=== PATIENT | female | born 1985 | race Caucasian/White ===

== ENCOUNTER 2018-11-07 16:46 | Emergency (ER) | payer MEDICAID ==
[~2018-11-07] VITALS: Ht 114.3 cm; Wt 66.8 kg
[2018-11-07 16:50] VITALS: Ht 114.3 cm; Wt 66.8 kg
[2018-11-07] MEDS ORDERED: CYCL10TA7 PO (18:55)
[2018-11-07] MEDS ORDERED: IBUP-1542 PO (18:55)
--- NOTE | 2018-11-07 19:12 | ERD ---
ER Documentation Chief Complaint Chief Complaint right sided chest pain that radiates to right shoulder and head x 1 day HPI 33-year-old female presents with right-sided chest pain that radiates to the right shoulder, head, x1 day. Patient states his symptoms began yesterday and have persisted for the past 24 hours, no change in intensity. Denies shortness of breath. She has not taken any medications to alleviate her symptoms at this time. She notes an increase in recent stress however she does not believe this is related to her symptoms. Denies history of heart disease, heart attack, diabetes. Patient is a non-smoker, denies hormone use, denies recent long distance travel, denies history of blood clots, denies lower extremity swelling, no hemoptysis. ROS All systems reviewed and are negative except as per history of present illness. Medications Home Meds Active Scripts Ibuprofen* (Motrin*) 600 Mg Tab, 600 MG PO Q6, #30 TAB Prov:NAEL SHAH PA-C 11/07/18 Cyclobenzaprine Hcl* (Cyclobenzaprine Hcl*) 10 Mg Tablet, 10 MG PO TID, #15 TAB Prov:NAEL SHAH PA-C 11/07/18 Allergies Allergies: Coded Allergies: No Known Allergy (Unverified , 11/07/18) PMhx/Soc Hx Alcohol Use: No Hx Substance Use: No Hx Tobacco Use: No Smoking Status: Never smoker Physical Exam Vitals Vital Signs Date Temp Pulse Resp B/P (MAP) Pulse Ox O2 O2 Flow FiO2 Time Delivery Rate 11/07/18 99.8 108 16 164/105 100 16:50 (124) Physical Exam Constitutional: Well developed. Well nourished. No acute distress Head/Eyes: Atraumatic. Normocephalic. PERRL. EOMI ENT: Moist mucous membranes. Voice normal. Neck: Supple. No lymphadenopathy Cardiovascular: Regular rate and rhythm. No murmurs, rubs, or gallops. Distal pulses intact Respiratory: No respiratory distress. Normal breath sounds. No wheezes, rales, or rhonchi. Abdominal: Soft. Non-tender. No guarding, rebound, or rigidity. Non-distended. Back: Full range of motion. No midline tenderness. Muscle spasms to the bilateral trapezius muscles. Extremities: No edema, Full ROM. Pulses 2+. No calf tenderness. Skin: Dry. No rashes. Warm Neurological: Alert and oriented X 3. Normal speech Psychiatric: Normal mood. Normal affect Result Diagram: 11/07/18 18011/[id number]/181802 Results 24 hrs Laboratory Tests Test 11/07/18 18:03 11/07/18 18:26 White Blood Count 10.1 10^3/ul Red Blood Count 4.92 10^6/ul Hemoglobin 13.0 g/dl Hematocrit 41.1 % Mean Corpuscular Volume 83.5 fl Mean Corpuscular Hemoglobin 26.4 pg Mean Corpuscular Hemoglobin Concent 31.6 g/dl Red Cell Distribution Width 13.6 % Platelet Count 306 10^3/UL Mean Platelet Volume 10.7 fl Immature Granulocytes % 0.200 % Neutrophils % 71.5 % Lymphocytes % 20.4 % Monocytes % 4.9 % Eosinophils % 2.8 % Basophils % 0.2 % Nucleated Red Blood Cells % 0.0 /100WBC Immature Granulocytes # 0.020 10^3/ul Neutrophils # 7.2 10^3/ul Lymphocytes # 2.1 10^3/ul Monocytes # 0.5 10^3/ul Eosinophils # 0.3 10^3/ul Basophils # 0.0 10^3/ul Nucleated Red Blood Cells # 0.0 10^3/ul Sodium Level 142 mmol/L Potassium Level 3.9 mmol/L Chloride Level 107 mmol/L Carbon Dioxide Level 26 mmol/L Anion Gap 9 Blood Urea Nitrogen 6 mg/dl Creatinine 0.62 mg/dl Est Glomerular Filtrat Rate mL/min > 60 mL/min Glucose Level 106 mg/dl Calcium Level 9.3 mg/dl Troponin I < 0.012 ng/ml POC Beta HCG, Qualitative NEGATIVE Procedures/MDM EKG: Rate/Rhythm: Sinus tach QRS, ST, T-waves: No changes consistent w/ acute ischemia Impression: No evidence of ischemia or arrhythmia MDM: This is an otherwise healthy 33-year-old female who presents to the ED with complaint of right-sided chest pain. Patient has no cardiac risk factors, non- smoker. Given elevated blood pressure with no history of hypertension as well as elevated pulse cardiac work-up performed. All labs and imaging negative. Symptoms likely consistent with anxiety plus or minus muscle spasms. Patient counseled regarding need for follow-up with primary care provider in the next 2 to 3 days. Given referral to community health clinics in the area to ensure follow-up. Prescription for Flexeril and Motrin given for muscle spasms. At this time I do not believe patient is at risk for SC, PE, dissection or other acute cardiopulmonary etiology based on negative risk factors. Patient counseled regarding ED return precautions. At this time I believe patient is stable for discharge with outpatient management. All questions addressed and answered. Patient expressed verbal understanding and agreement to treatment plan. Departure Diagnosis: Primary Impression: Chest pain of unknown etiology Additional Impressions: Muscle spasms of neck Stress Condition: Stable Patient Instructions: Muscle Spasm, Stress: Causes and Effects, Chest Pain, Uncertain Cause Referrals: [facility] Usted se christian hecho un examen mdico de control que le indica que no est en steve condicin que requiera tratamiento urgente en el Departamento de Emergencia. Un estudio ms profundo y el tratamiento de zimmerman condicin pueden esperar sin ningn riesgo hasta que usted sea atendida/o en el consultorio de zimmerman mdico o steve clnica. Es responsabilidad suya arreglar steve anne para el seguimiento del ambreen. MANEJO DE CONDICIONES NO URGENTES EN EL FUTURO 1) Si usted tiene un mdico de atencin primaria: Usted debera llamar a zimmerman mdico de atencin primaria antes de venir al departamento de emergencia. Despus de las horas de consultorio, zimmerman doctor o zimmeramn asociado/a est disponible por telfono. El mdico o enfermero de jonathan en el servicio telefnico puede asesorarle por stanley medio para atender el problema, o ambreen contrario se puede programar steve anne. 2) Si usted no tiene un mdico de atencin primaria: Llame al mdico o clnica de referencia que aparece abajo susan las horas de consultorio para hacer steve anne para que le vean. CLINICAS: [facility] [phone] [facility] [phone] [facility] [facility]. [facility] [phone] [address] [place] [phone] [facility] [phone] [facility] [phone] NAEL SMITH PA-C Nov 07, 2018 19:12
[2018-11-07 19:21] VITALS: BP 137/85; PULSE 69; RESP 18
== END 2018-11-07 19:22 | disposition home or self-care (01) ==
LOC: FTE 16:46
DX: R07.9 Chest pain, unspecified (principal); M62.838 Other muscle spasm; F43.9 Reaction to severe stress, unspecified
CPT/HCPCS: 36415; 71045; 80048; 81025; 84484; 85025; 93005